=== PATIENT | female | born 1975 | race Caucasian/White ===

== ENCOUNTER 2018-12-30 13:22 | Emergency (ER) | payer SELFPAY ==
[~2018-12-30] VITALS: Ht 165.1 cm; Wt 82.0 kg
[2018-12-30] MEDS ORDERED: ALPRAZOLAM 0.5 MG TABLET PO ONE (14:00)
[2018-12-30] MEDS ORDERED: KETOROLAC 60MG/2ML VIAL IM ONE (16:15)
[2018-12-30 17:18] VITALS: BP 138/75
== END 2018-12-30 17:32 | disposition home or self-care (01) ==
LOC: ER 13:58
DX: F41.0 Panic disorder [episodic paroxysmal anxiety] (principal); R20.2 Paresthesia of skin; R10.13 Epigastric pain; F41.9 Anxiety disorder, unspecified; G43.909 Migraine, unspecified, not intractable, without status migrainosus
CPT/HCPCS: 36415; 84484; 93005; 96372; 99284; J1885